=== PATIENT | male | born 1965 | race Caucasian/White ===

== ENCOUNTER 2018-01-26 08:08 | Emergency (ER) | payer SELFPAY ==
[~2018-01-26] VITALS: Ht 175.3 cm; Wt 104.0 kg
[2018-01-26 08:49] LABS: CLARITY URINE CLEAR (CLEAR); COLOR URINE YELLOW (YELLOW); KETONES URINE TRACE (NEGATIVE); LEUKOCYTE ESTERASE URINE NEGATIVE (NEGATIVE); NITRITE URINE NEGATIVE (NEGATIVE); OCCULT BLOOD URINE 1+ (NEGATIVE); PROTEIN URINE NEGATIVE (NEGATIVE); UROBILINOGEN URINE 0.2 E.U./dL (0.2-1.0)
[2018-01-26] MEDS ORDERED: MORPHINE SULFATE 4 MG/ML CPJ (NOT FOR IM USE) IV STA (10:14)
[2018-01-26] MEDS ORDERED: ONDANSETRON HCL 4MG/2ML INJ IV STA (10:14)
[2018-01-26] MEDS ORDERED: KETOROLAC 30MG/ML VIAL IV STA (10:14)
[2018-01-26] MEDS ORDERED: SODIUM CHLORIDE 0.9% 1,000 ML IV ONE (10:14)
[2018-01-26] MEDS ORDERED: ONDANSETRON 4MG ODT PO ONE (10:30)
[2018-01-26] MEDS ORDERED: TAMSULOSIN HCL 0.4MG SR CAPSULE PO ONE (11:15)
[2018-01-26 11:36] LABS: BASOPHILS % 0.4 % (0.0-2.0); CHLORIDE 102 mEq/L (98-107); EOSINOPHILS % 0.2 % (0.0-5.0); HEMATOCRIT. 49.1 % (42.0-52.0); HEMOGLOBIN. 16.9 g/dL (14.0-18.0); LYMPHOCYTES % 17.3 % (20.0-50.0); MEAN CORPUSCULAR VOLUME 87.2 fL (80.0-94.0); NEUTROPHILS % 78.1 % (40.0-76.0); PLATELET 158 x1000/uL (130-400); RED BLOOD CELL COUNT 5.64 mill/uL (4.7-6.1); RED CELL DISTRIBUTION WIDTH 13.5 % (11.6-14.6)
[2018-01-26 11:40] LABS: PARTIAL THROMBOPLASTIN TIME 22.3 sec (23.4-31.0); PROTHROMBIN TIME 9.9 sec (9.1-11.1)
[2018-01-26 12:19] VITALS: BP 119/63
== END 2018-01-26 12:45 | disposition home or self-care (01) ==
LOC: ER 08:08
DX: R10.12 Left upper quadrant pain (principal); N20.0 Calculus of kidney; E11.9 Type 2 diabetes mellitus without complications; E66.9 Obesity, unspecified; Z68.33 Body mass index [BMI] 33.0-33.9, adult
CPT/HCPCS: 36415; 74176; 80053; 81003; 83690; 85025; 85610; 85730; 87086; 96374; 96375; 99284; J1885; J2270; J2405; J7030; Q0162

== ENCOUNTER 2018-08-29 20:57 | Emergency (ER) | payer OTHER ==
[~2018-08-29] VITALS: Ht 175.3 cm; Wt 99.0 kg
[2018-08-29] MEDS ORDERED: FLUORESCEIN SODIUM 1MG/STRIP OP ONE (22:30)
[2018-08-29] MEDS ORDERED: TETRACAINE 0.5% OPHTH DROPS 4ML OP ONE (22:30)
[2018-08-29 23:32] VITALS: BP 146/87
== END 2018-08-29 23:34 | disposition home or self-care (01) ==
LOC: ER 20:57
DX: T15.02XA Foreign body in cornea, left eye, initial encounter (principal); E11.9 Type 2 diabetes mellitus without complications; X58.XXXA Exposure to other specified factors, initial encounter; Y93.89 Activity, other specified; Y92.89 Other specified places as the place of occurrence of the external cause; Y99.8 Other external cause status
CPT/HCPCS: 65220; 82962; 99284

== ENCOUNTER 2018-10-23 19:45 | Emergency (ER) | payer OTHER ==
[~2018-10-23] VITALS: Ht 175.3 cm; Wt 100.0 kg
[2018-10-23] MEDS ORDERED: METHOCARBAMOL 750MG TABLET PO STA (21:40)
[2018-10-23] MEDS ORDERED: MORPHINE SULFATE 10 MG/ML CPJ IM ONE (21:45)
[2018-10-23] MEDS ORDERED: KETOROLAC 60MG/2ML VIAL IM ONE (21:45)
[2018-10-23] MEDS ORDERED: ONDANSETRON 4MG ODT PO ONE (21:45)
[2018-10-24 00:49] VITALS: BP 138/76
== END 2018-10-24 00:50 | disposition home or self-care (01) ==
LOC: ER 19:45
DX: M62.830 Muscle spasm of back (principal); R11.10 Vomiting, unspecified; E11.9 Type 2 diabetes mellitus without complications; I10 Essential (primary) hypertension
CPT/HCPCS: 96372; 99283; J1885; J2270; Q0162

== ENCOUNTER 2024-09-28 15:05 | Emergency (ER) | payer OTHER, MEDICAID ==
[~2024-09-28] VITALS: Ht 165.1 cm; Wt 91.0 kg
[~2024-09-28 15:05] MED LIST: ATOR40TA70 MT; LINE600T14 MT
[2024-09-28 15:24] VITALS: O2SAT 98
[2024-09-28 16:03] LABS: BASOPHILS % 0.7 % (0.0-2.0); EOSINOPHILS % 1.5 % (0.0-5.0); HEMATOCRIT. 36.4 % (42.0-52.0); HEMOGLOBIN. 12.2 g/dL (14.0-18.0); LYMPHOCYTES % 27.7 % (20.0-50.0); MEAN PLATELET VOLUME 8.8 fl (7.4-10.4); MONOCYTES % 9.3 % (2.0-8.0); NEUTROPHILS % 60.8 % (40.0-76.0); PLATELET 283 x1000/uL (130-400); RED BLOOD CELL COUNT 4.27 mill/uL (4.7-6.1); RED CELL DISTRIBUTION WIDTH 13.6 % (11.6-14.6)
[2024-09-28 16:31] LABS: UREA NITROGEN BLOOD 30.0 mg/dL (9-23)
[2024-09-28 16:42] LABS: CREATININE 1.5 mg/dL (0.6-1.3)
[2024-09-28] MEDS ORDERED: VANCOMYCIN 1000MG/250ML 250 ML IV STA (18:42)
[2024-09-28] MEDS: PIPERACILLIN/TAZO 3.375G/50ML 50 ML IV STA (20:14)
[2024-09-28] MEDS: SODIUM CHLORIDE 0.9% 1,000 ML IV ONE (20:14)
[2024-09-28] MEDS: VANCOMYCIN 1G PREMIX 200 ML IV SCH (20:45)
[2024-09-28 23:06] VITALS: BP 165/100; PULSE 90; RESP 14; TEMP 36.9; O2SAT 97
[2024-09-28] MEDS ORDERED: INSULIN REGULAR (HUMULIN R) 1000UNITS/10ML VIAL IV ONE (23:15)
== END 2024-09-28 23:30 | disposition left against medical advice (07) ==
LOC: ER 15:05 → EDBEDREQTM 21:02 → EDBEDREQ 21:02 → ENRESERV 22:08 → ER 23:30 → CANBEDREQ 09-29 00:10
DX: E11.621 Type 2 diabetes mellitus with foot ulcer (principal); L97.519 Non-pressure chronic ulcer of other part of right foot with unspecified severity; E11.65 Type 2 diabetes mellitus with hyperglycemia; I10 Essential (primary) hypertension; Z79.899 Other long term (current) drug therapy; Z98.890 Other specified postprocedural states; Z53.29 Procedure and treatment not carried out because of patient's decision for other reasons
CPT/HCPCS: 99284; 96365; 96366; 80048; 86141; 85025; 85651; 87040; 36415; 73620; 96368; J2543; J3373; J7030